=== PATIENT | female | born 1970 | race African-American/Black ===

== ENCOUNTER 2019-06-11 20:12 | Emergency (ER) | payer BC ==
--- NOTE | 2019-06-12 17:16 | CONS ---
DATE OF CONSULTATION: 06/11/2019 DATE OF : 1970 PRIMARY CARE PHYSICIAN: Yousif Craig MD BRIEF HISTORY: This patient is a 48-year-old patient. She is referred to me by Terri Erickson in the [facility]. She had a history of multiple fibroid uterus. Supposedly 10 days ago, she had embolization of some of this fibroid. However, the patient presented to the emergency room with lower abdominal pain and guarding and then tenderness, but no rebound tenderness. On brief examination, her vital signs are stable and she is afebrile. Her white count is normal and her hematocrit stable comparing to the note by her provider which I reviewed at the time of the consultation. On examination, her lower abdomen is a little bit guarded, tender, but no rebound tenderness. Pelvic examination, the external vulva is normal. The vagina is normal. There is vaginal bleeding. Speculum examination revealed the cervix is clean, there is no mass. On bimanual examination, there is abdominal mass, is almost to the level of the umbilicus, is tender, and is consistent with the patient who has fibroid and embolization, and for the purpose of this consultation, I reviewed the CAT scan result which is performed at the request of her primary care doctor. At this time, it seems to be the primary complaint of the patient is pain and discomfort without any fever without any elevated white count, so the element of infection is probably decreased. I told the patient I am going to give her some pain medication and she is scheduled to see me on Thursday at 8:30 in the clinic in where we can go investigate further her situation and where I can have a chance to actually view the CAT scan, but I also told the patient it is most likely that her fibroid needs to be removed and she probably is going to need surgery and most likely this would be done abdominally. We will discuss with the patient, understand that, and we will discuss further management of the patient once the acute status of her condition is resolved. The patient is to be followed in the office on Thursday, she already has an appointment. HAKEEM / LEORA /[id number]
== END 2019-06-11 21:29 | disposition home or self-care (01) ==
LOC: MW.ED 20:12
DX: R19.00 Intra-abdominal and pelvic swelling, mass and lump, unspecified site (principal)
CPT/HCPCS: 36415; 86304; 99284

== ENCOUNTER 2021-02-04 14:34 | Emergency (ER) | payer BC ==
[2021-02-04] MEDS ORDERED: Sodium Chloride 0.9% 2.5 ML Syringe FLUSH PRN (14:37)
[2021-02-04] MEDS ORDERED: Sodium Chloride 0.9% 10 ML Syringe FLUSH PRN (14:37)
--- NOTE | 2021-02-04 14:42 | EDM.PDOC ---
ED HPI GENERAL MEDICAL PROBLEM - General Stated Complaint: CHEST PAIN Time Seen by Provider: 02/04/21 14:42 Source of Information: Reports: Patient History Limitations: Reports: No Limitations - History of Present Illness INITIAL COMMENTS - FREE TEXT/NARRATIVE: HISTORY AND PHYSICAL: History of present illness: Patient is a 50-year-old female who presents to the emergency room with complaints of midsternal chest pain that occasionally radiates into her left shoulder and arm. She states she has had these symptoms for 6 to 8 months that come and go, but will happen every other day if not daily. She has seen a primary care provider, Stephanie Miles, who felt this was stress/insomnia related. Patient states that she does not sleep well and has been prescription for Ambien, but only takes this on days she does not work (which is not often) due to feeling groggy the next day. States they were talking about doing a medication for anxiety as they felt this was related as well, although has not gone this route yet. She has been turning to alcohol to help her "relax enough" to get to sleep. She reports concern as she doesn't want to drink ETOH daily. Today symptoms started at 6 AM and have been intermittent, she decided to come to the emergency room for evaluation. Patient denies any fever, chills, headache, change in vision, syncope or near syncope. Denies any back pain, shortness of breath or cough. Denies any abdominal pain, nausea, vomiting, diarrhea, constipation or dysuria. Has not noted any blood in urine or stool. Patient has been eating and drinking appropriately. Review of systems: As per history of present illness and below otherwise all systems reviewed and negative. Past medical history: As per history of present illness and as reviewed below otherwise noncontrib utory. Surgical history: As per history of present illness and as reviewed below otherwise noncontributory. Social history: See social history for further information Family history: As per history of present illness and as reviewed below otherwise noncontributory. Physical exam: General: Well developed and well nourished 50 year old female. Alert and orientated x 3. Nontoxic in appearance and in no acute distress. Vital signs are stable and have been reviewed by me. Nursing notes were reviewed. HEENT: Atraumatic, normocephalic, pupils equal and reactive bilaterally, negative for conjunctival pallor or scleral icterus, mucous membranes moist, TMs normal bilaterally, throat clear, neck supple, nontender, trachea midline. No drooling or trismus noted. No meningeal signs. No hot potato voice noted. Lungs: Clear to auscultation bilaterally. No wheezes, rales, or rhonchi. Chest nontender. Normal work of breathing, no accessory muscles used. Heart: S1S2, regular rate and rhythm without overt murmur, gallops, or rubs. No JVD. No peripheral edema Abdomen: Soft, nondistended, nontender. Normoactive bowel sounds. Negative for masses or costovertebral tenderness. Skin: Intact, warm, dry. No lesions or rashes noted. Hematologic: No petechiae or purpra. Mucosa appropriate color and normal nail bed color and refill. Extremities: Atraumatic, moves all extremities per self without difficulty or deficits, negative for cords or calf pain. Neurovascular unremarkable. Neuro: Awake, alert, oriented. Cranial nerves II through XII unremarkable. Cerebellum unremarkable. Motor and sensory unremarkable throughout. Exam nonfocal. Psychiatric: Mood and affect are appropriate. Normal thought process. Answering questions appropriately. Notes: *This patient was seen and evaluated during the 2019 SARS-CoV-2 novel coronavirus pandemic period. Community viral transmission is ongoing at time of this encounter and the emergency department is operating under pandemic response procedures. Low suspicion for DVT/PE, WELLs criteria is LOW. Will do cardiac enzymes. EKG shows no concerning findings. Patient's story and history, it sounds like patient has some anxiety/insomnia causing symptoms. Lab work is unremarkable. Negative troponin. CXR shows no acute or significant findings. I have talked with the patient about today's findings, in addition to providing specific details for plan of care. Reassessment at the time of disposition demonstrates that the patient is in no acute distress. We did give 1 dose of Ativan while here which she states alleviated her discomfort/tightness she experienced. The patient is stable for discharge, counseling was provided and we discussed in great detail signs and symptoms that would prompt them to return to the Emergency Department. Medication, follow up and supportive care measures were reviewed and discussed. Voices understanding and is agreeable to plan of care. Denies any further questions or concerns at this time. Diagnostics: CBC, CMP, Troponin, EKG, CXR Therapeutics: Aspirin, GI cocktail, Protonix Prescription: Ativan Impression: Chest pain Plan: 1. You were evaluated today on an emergent basis. Your lab work was within normal limits. I have prescribed you a small amount of Ativan to help with symptoms. This medication may cause drowsiness, so make sure you know how it makes you feel before taking it at work. Do not combine this medication with Alcohol or your Ambien. 2. You can alternate Tylenol and ibuprofen as needed for pain and fever management. 3. We encourage you to follow up with your primary care provider in the next few days for re-evaluation and further care/management. I would also like you to follow up with Drawer Fitter, Dr Vinson, for further evaluation of your ongoing chest pain. 4. If your symptoms should worsen, new symptoms develop or any of the signs and symptoms we discussed should arise please return to the emergency room or call 911 (if needed). Definitive disposition and diagnosis as appropriate pending reevaluation and review of above. Chest Pain Score (Numeric/FACES): 6 - Related Data Allergies Allergy/AdvReac Type Severity Reaction Status Date / Time Fish Containing Products Allergy Other Verified 02/04/21 14:47 Home Meds: Home Meds LORazepam [Ativan] 0.5 mg PO Q6H PRN #20 tab 02/04/21 [Rx] Pantoprazole [ProTONIX] 1 dose PO DAILY 02/04/21 [History] Zolpidem Tartrate 1 dose PO DAILY 02/04/21 [History] Past Medical History Gastrointestinal History: Reports: GERD SOLE [employer]ER History: Reports: Fibroids, - Past Surgical History GI Surgical History: Reports: Colonoscopy, EGD Female Surgical History: Reports: Other (See Below) Other Female Surgeries/Procedures: fibroid surgery Social & Family History - Family History Family Medical History: No Pertinent Family History ED ROS GENERAL - Review of Systems Review Of Systems: Comprehensive ROS is negative, except as noted in HPI. ED EXAM, GENERAL - Physical Exam Exam: See Below (See dictation) Course - Vital Signs Last Recorded V/S: Last Vital Signs Temp 97.2 F 02/04/21 14:48 Pulse 77 02/04/21 14:48 Resp 16 02/04/21 14:48 BP 118/80 02/04/21 14:48 Pulse Ox 99 02/04/21 14:48 - Orders/Labs/Meds Orders: Active Orders 24 hr Category Date Time Status EKG Documentation Completion [RC] STAT Care 02/04/21 14:37 Active Sodium Chloride 0.9% [Normal Saline] 1,000 ml Med 02/04/21 15:00 Active IV ASDIRECTED Sodium Chloride 0.9% [Saline Flush] Med 02/04/21 14:37 Active 10 ml FLUSH ASDIRECTED PRN Sodium Chloride 0.9% [Saline Flush] Med 02/04/21 14:37 Active 2.5 ml FLUSH ASDIRECTED PRN Saline Lock Insert [OM.PC] Stat Oth 02/04/21 14:37 Ordered Medication Orders Sodium Chloride (Normal Saline) 1,000 mls @ 150 mls/hr IV ASDIRECTED BELEM Last Admin: 02/04/21 15:10 Dose: 150 mls/hr Documented by: KASSANDRA Sodium Chloride (Sodium Chloride 0.9% 10 Ml Syringe) 10 ml FLUSH ASDIRECTED PRN PRN Reason: Keep Vein Open Last Admin: 02/04/21 15:09 Dose: 10 ml Documented by: KASSANDRA Sodium Chloride (Sodium Chloride 0.9% 2.5 Ml Syringe) 2.5 ml FLUSH ASDIRECTED PRN PRN Reason: Keep Vein Open Last Admin: 02/04/21 15:09 Dose: 2.5 ml Documented by: KASSANDRA Labs: Laboratory Tests 02/04/21 02/04/21 02/04/21 Range/Units 14:37 14:41 14:41 WBC 7.05 (4.0-11.0) K/uL RBC 4.29 L (4.30-5.90) M/uL Hgb 10.7 L (12.0-16.0) g/dL Hct 35.4 L (36.0-46.0) % MCV 82.5 (80.0-98.0) fL MCH 24.9 L (27.0-32.0) pg MCHC 30.2 L (31.0-37.0) g/dL RDW Std Deviation 52.3 (28.0-62.0) fl RDW Coeff of Randal 17 H (11.0-15.0) % Plt Count 215 (150-400) K/uL MPV 10.90 (7.40-12.00) fL Neut % (Auto) 61.1 (48.0-80.0) % Lymph % (Auto) 29.9 (16.0-40.0) % [place] % (Auto) 5.2 (0.0-15.0) % Eos % (Auto) 3.4 (0.0-7.0) % Baso % (Auto) 0.4 (0.0-1.5) % Neut # (Auto) 4.3 (1.4-5.7) K/uL Lymph # (Auto) 2.1 (0.6-2.4) K/uL [place] # (Auto) 0.4 (0.0-0.8) K/uL Eos # (Auto) 0.2 (0.0-0.7) K/uL Baso # (Auto) 0.0 (0.0-0.1) K/uL Nucleated RBC % 0.0 /100WBC Nucleated RBCs # 0 K/uL Sodium 137 (136-145) mmol/L Potassium 3.7 (3.5-5.1) mmol/L Chloride 102 (98-107) mmol/L Carbon Dioxide 29.9 (21.0-32.0) mmol/L BUN 9 (7.0-18.0) mg/dL Creatinine 0.7 (0.6-1.0) mg/dL Est Cr Clr Drug Dosing 86.52 mL/min Estimated GFR (MDRD) > 60.0 ml/min Glucose 128 H (74-106) mg/dL Calcium 9.4 (8.5-10.1) mg/dL Total Bilirubin 0.2 (0.2-1.0) mg/dL AST 18 (15-37) IU/L ALT 26 (14-63) IU/L Alkaline Phosphatase 65 (46-116) U/L Troponin I < 0.050 (0.000-0.056) ng/mL Total Protein 8.0 (6.4-8.2) g/dL Albumin 3.6 (3.4-5.0) g/dL Globulin 4.4 H (2.6-4.0) g/dL Albumin/Globulin Ratio 0.8 L (0.9-1.6) Lipase 56 L (73-393) U/L Meds: Medications Generic Name Dose Route Start Last Admin Trade Name Freq PRN Reason Stop Dose Admin Sodium Chloride 1,000 mls @ 150 mls/hr 02/04/21 15:00 02/04/21 15:10 Normal Saline IV 150 mls/hr ASDIRECTED BELEM Administration Sodium Chloride 10 ml 02/04/21 14:37 02/04/21 15:09 Sodium Chloride 0.9% 10 Ml Syringe FLUSH 10 ml ASDIRECTED PRN Administration Keep Vein Open Sodium Chloride 2.5 ml 02/04/21 14:37 02/04/21 15:09 Sodium Chloride 0.9% 2.5 Ml Syringe FLUSH 2.5 ml ASDIRECTED PRN Administration Keep Vein Open Discontinued Medications Generic Name Dose Route Start Last Admin Trade Name Freq PRN Reason Stop Dose Admin Aspirin 324 mg 02/04/21 14:47 02/04/21 15:07 Aspirin 81 Mg Tab.Chew PO 02/04/21 14:48 324 mg ONETIME ONE Administration Al Hydroxide/Mg Hydroxide 15 0 ml 02/04/21 14:47 02/04/21 15:08 ml/ Metoclopramide HCl 5 mg/ PO 02/04/21 14:48 1 each Lidocaine HCl 5 ml ONETIME ONE Administration Pantoprazole Sodium 80 mg/ 20 mls @ 420 mls/hr 02/04/21 14:47 02/04/21 15:11 Sodium Chloride IVPUSH 02/04/21 14:49 420 mls/hr ONETIME ONE Administration Lorazepam 0.5 mg 02/04/21 15:26 Lorazepam 2 Mg/Ml Sdv IVPUSH 02/04/21 15:27 ONETIME ONE Departure - Departure Time of Disposition: 15:37 Disposition: Home, Self-Care 01 Clinical Impression: Chest pain Qualifiers: Chest pain type: unspecified Qualified Code(s): R07.9 - Chest pain, unspecified Prescriptions: LORazepam [Ativan] 0.5 mg PO Q6H PRN #20 tab PRN Reason: Anxiety Referrals: Tracie Holland [facility] MANAGER [Primary Care Provider] - Additional Instructions: The following information is given to patients seen in the emergency department who are being discharged to home. This information is to outline your options for follow-up care. We provide all patients seen in our emergency department with a follow-up referral. The need for follow-up, as well as the timing and circumstances, are variable de pending upon the specifics of your emergency department visit. If you don't have a primary care physician on staff, we will provide you with a referral. We always advise you to contact your personal physician following an emergency department visit to inform them of the circumstance of the visit and for follow-up with them and/or the need for any referrals to a consulting specialist. The emergency department will also refer you to a specialist when appropriate. This referral assures that you have the opportunity for follow-up care with a specialist. All of these measure are taken in an effort to provide you with optimal care, which includes your follow-up. Under all circumstances we always encourage you to contact your private physician who remains a resource for coordinating your care. When calling for follow-up care, please make the office aware that this follow-up is from your recent emergency room visit. If for any reason you are refused follow-up, please contact the [facility] Emergency Department at and asked to speak to the emergency department charge nurse. [facility] [address] [place] [id number] [address] Thank you for choosing the [facility] emergency department in [place] for your medical needs today. It was a pleasure caring for you. Today you were seen in the emergency department for chest pain. 1. You were evaluated today on an emergent basis. Your lab work was within normal limits. I have prescribed you a small amount of Ativan to help with symptoms. This medication may cause drowsiness, so make sure you know how it makes you feel before taking it at work. Do not combine this medication with Alcohol or your Ambien. 2. You can alternate Tylenol and ibuprofen as needed for pain and fever management. 3. We encourage you to follow up with your primary care provider in the next few days for re-evaluation and further care/management. I would also like you to follow up with Drawer Fitter, Dr Vinson, for further evaluation of your ongoing chest pain. 4. If your symptoms should worsen, new symptoms develop or any of the signs and symptoms we discussed should arise please return to the emergency room or call 911 (if needed). Sepsis Event Note (ED) - Focused Exam Vital Signs: Vital Signs Temp Pulse Resp BP Pulse Ox 02/04/21 14:48 97.2 F 77 16 118/80 99 - My Orders Last 24 Hours: My Active Orders 02/04/21 14:37 EKG Documentation Completion [RC] STAT Sodium Chloride 0.9% [Saline Flush] 10 ml FLUSH ASDIRECTED PRN Sodium Chloride 0.9% [Saline Flush] 2.5 ml FLUSH ASDIRECTED PRN Saline Lock Insert [OM.PC] Stat 02/04/21 15:00 Sodium Chloride 0.9% [Normal Saline] 1,000 ml IV ASDIRECTED - Assessment/Plan Last 24 Hours: My Active Orders 02/04/21 14:37 EKG Documentation Completion [RC] STAT Sodium Chloride 0.9% [Saline Flush] 10 ml FLUSH ASDIRECTED PRN Sodium Chloride 0.9% [Saline Flush] 2.5 ml FLUSH ASDIRECTED PRN Saline Lock Insert [OM.PC] Stat 02/04/21 15:00 Sodium Chloride 0.9% [Normal Saline] 1,000 ml IV ASDIRECTED
[2021-02-04] MEDS ORDERED: Aspirin 81 MG Tab.Chew PO ONE (14:47)
[2021-02-04] MEDS ORDERED: Alum Hydrox/Mag Hydrox/Simeth 15 ML, Metoclopramide 5 MG, Lidocaine 2% 5 ML PO ONE ×3 (14:47)
[2021-02-04] MEDS ORDERED: Pantoprazole 80 MG in Sodium Chloride 0.9% 20 ML IVPUSH ONE (14:47)
[2021-02-04] MEDS ORDERED: Sodium Chloride 0.9% 1,000 ML IV SCH (15:00)
[2021-02-04 15:18] LABS: BLOOD UREA NITROGEN,BUN 9 mg/dL (7.0-18.0); CARBON DIOXIDE,CO2 29.9 mmol/L (21.0-32.0); CHLORIDE,CL 102 mmol/L (98-107); GLUCOSE RANDOM 128 mg/dL (74-106); POTASSIUM,K 3.7 mmol/L (3.5-5.1); SODIUM,NA 137 mmol/L (136-145)
--- NOTE | 2021-02-04 15:23 | CR ---
INDICATION: Chest pain TECHNIQUE: Chest 1 view COMPARISON: None FINDINGS: Cardiovascular and mediastinum: Heart size and vasculature are normal in caliber and appearance. Lungs and pleural spaces: Lungs are clear. No sign of infiltrate or mass. No sign of pleural effusion. No pneumothorax. Bones and soft tissues: No significant findings. IMPRESSION: No acute or significant findings. Dictated by Arnold Hwang MD @ Feb 04 2021 3:21PM Signed by Dr. Arnold Hwang @ Feb 04 2021 3:21PM
[2021-02-04] MEDS ORDERED: LORazepam 2 MG/ML SDV IVPUSH ONE (15:26)
--- NOTE | 2021-02-07 09:21 | PCM.EKG ---
#1 Interpretation EKG Date: 02/04/21 Time: 14:41 Rhythm: NSR Rate (Beats/Min): 75 [place]: Normal P-Wave: Present QRS: Normal ST-T: Normal QT: Normal Comparison: NA - No Prior EKG EKG Interpretation Comments: Sinus rhythm
== END 2021-02-04 15:52 | disposition home or self-care (01) ==
LOC: MW.ED 14:34
DX: R07.9 Chest pain, unspecified (principal); K21.9 Gastro-esophageal reflux disease without esophagitis; Z91.013 Allergy to seafood; Z79.899 Other long term (current) drug therapy
CPT/HCPCS: 36415; 71045; 80053; 83690; 84484; 85025; 93005; 96374; 96375; 99285; A9270; C9113; J2060; J7030; 93010; 99283

== ENCOUNTER 2022-04-13 12:03 | Emergency (ER) | payer BC ==
[2022-04-13] MEDS ORDERED: Sodium Chloride 0.9% 2.5 ML Syringe FLUSH PRN (12:08)
[2022-04-13] MEDS ORDERED: Sodium Chloride 0.9% 10 ML Syringe FLUSH PRN (12:08)
[2022-04-13] MEDS ORDERED: Sodium Chloride 0.9% 1,000 ML IV ONE (12:22)
[2022-04-13] MEDS ORDERED: Ondansetron 4 MG/2 ML SDV IVPUSH ONE (12:22)
[2022-04-13] MEDS ORDERED: Ketorolac 30 MG/ML SDV IVPUSH ONE (12:23)
[2022-04-13 13:06] LABS: BLOOD UREA NITROGEN,BUN 7 mg/dL (7.0-18.0); CARBON DIOXIDE,CO2 28.8 mmol/L (21.0-32.0); CHLORIDE,CL 103 mmol/L (98-107); GLUCOSE RANDOM 128 mg/dL (74-106); LIPASE 32 U/L (73-393); POTASSIUM,K 3.6 mmol/L (3.5-5.1); SODIUM,NA 138 mmol/L (136-145)
[2022-04-13 14:51] LABS: CORONAVIRUS COVID-19 NAA NEGATIVE (NEGATIVE); INFLUENZA A NAA NEGATIVE (NEGATIVE); INFLUENZA B NAA NEGATIVE (NEGATIVE)
[2022-04-13] MEDS ORDERED: Alum Hydro/Mag Hydro/Simeth XS 15 ML, Metoclopramide 5 MG, Lidocaine 2% 5 ML PO ONE ×3 (15:15)
[2022-04-13] MEDS ORDERED: Morphine 4 MG/ML VIAL IVPUSH ONE (15:15)
== END 2022-04-13 15:33 | disposition home or self-care (01) ==
LOC: MW.ED 12:03
DX: R10.84 Generalized abdominal pain (principal); K21.9 Gastro-esophageal reflux disease without esophagitis; Z79.899 Other long term (current) drug therapy; Z91.013 Allergy to seafood; Z20.822 Contact with and (suspected) exposure to COVID-19
CPT/HCPCS: 0240U; 36415; 80053; 81003; 83690; 85025; 96361; 96374; 96375; 99284; A9270; J1885; J2270; J2405; J3490; J7030

== ENCOUNTER 2022-05-05 09:28 | Emergency (ER) | payer BC ==
[2022-05-05] MEDS ORDERED: Lactated Ringers 1,000 ML IV STA ×4 (09:58→14:39)
[2022-05-05] MEDS ORDERED: Morphine 4 MG/ML VIAL IVPUSH ONE (10:14)
[2022-05-05] MEDS ORDERED: Piperacillin/Tazobactam 4.5 GM in Sodium Chloride 0.9% 100 ML IV ONE (11:43)
[2022-05-05] MEDS ORDERED: VANCOmycin 1.5 GM/300 ML 1.5 GM in Premix Bag 1 BAG IV ONE (12:15)
[2022-05-05] MEDS ORDERED: Iopamidol 755 MG/ML 500 ML Multipack Bottle IVPUSH STA (12:51)
[2022-05-05] MEDS ORDERED: fentaNYL 50 MCG/ML SDV IVPUSH ONE (16:35)
[2022-05-05] MEDS ORDERED: Pantoprazole 80 MG in Sodium Chloride 0.9% 10 ML IVPUSH ONE (17:01)
[2022-05-06] MEDS ORDERED: Ketorolac 30 MG/ML SDV IVPUSH ONE (01:31)
== END 2022-05-06 02:05 ==
LOC: MW.ED 09:28
DX: N17.9 Acute kidney failure, unspecified (principal); C24.0 Malignant neoplasm of extrahepatic bile duct; R18.0 Malignant ascites; I95.9 Hypotension, unspecified; D64.9 Anemia, unspecified; E86.0 Dehydration; Z91.013 Allergy to seafood; Z20.822 Contact with and (suspected) exposure to COVID-19
CPT/HCPCS: 36415; 36430; 74177; 80053; 83605; 83735; 85014; 85018; 85025; 85610; 86301; 86304; 86850; 86900; 86901; 86920; 87040; 87635; 96361; 96365; 96367; 96375; 99291; C9113; J1885; J2270; J2543; J3010; J3370; J3490; J7120; P9016; Q9967; U0002

== ENCOUNTER 2022-05-07 01:29 | Emergency (ER) | payer BC ==
[2022-05-07] MEDS ORDERED: Sodium Chloride 0.9% 2.5 ML Syringe FLUSH PRN (01:37)
[2022-05-07] MEDS ORDERED: Sodium Chloride 0.9% 10 ML Syringe FLUSH PRN (01:37)
[2022-05-07 02:29] LABS: CARBON DIOXIDE,CO2 28.9 mmol/L (21.0-32.0); POTASSIUM,K 3.8 mmol/L (3.5-5.1)
[2022-05-07] MEDS ORDERED: Sodium Chloride 0.9% 1,000 ML IV SCH (03:00)
[2022-05-07] MEDS ORDERED: Iopamidol 755 MG/ML 500 ML Multipack Bottle IVPUSH STA (03:22)
== END 2022-05-07 04:18 | disposition home or self-care (01) ==
LOC: MW.ED 01:29
DX: J98.11 Atelectasis (principal); J90 Pleural effusion, not elsewhere classified; F41.9 Anxiety disorder, unspecified; F32.A Depression, unspecified; Z79.899 Other long term (current) drug therapy; Z91.013 Allergy to seafood
CPT/HCPCS: 36415; 71045; 71275; 80048; 85025; 86850; 86900; 86901; 99285; J3490; J7030; Q9967; 99284

== ENCOUNTER 2022-05-24 21:51 | Emergency (ER) | payer BC ==
[2022-05-24 23:19] LABS: CARBON DIOXIDE,CO2 31.3 mmol/L (21.0-32.0); POTASSIUM,K 3.3 mmol/L (3.5-5.1)
[2022-05-24] MEDS ORDERED: Iopamidol 755 MG/ML 500 ML Multipack Bottle IVPUSH STA (23:57)
[2022-05-25] MEDS ORDERED: Levofloxacin/Dextrose 5%-Water 750 MG in Premix Bag 1 BAG IV ONE (01:47)
[2022-05-25] MEDS ORDERED: metroNIDAZOLE 250 MG Tab PO ONE (03:13)
== END 2022-05-25 03:31 | disposition home or self-care (01) ==
LOC: MW.ED 21:51
DX: R18.8 Other ascites (principal); Z90.710 Acquired absence of both cervix and uterus
CPT/HCPCS: 36415; 74177; 80053; 81001; 83605; 83690; 85025; 87086; 96365; 99284; A9270; J1956; Q9967; 87088; 87186